=== PATIENT | male | born 1960 | race Caucasian/White ===

== ENCOUNTER → 2018-11-25 10:45 | Outpatient (CLI) | payer OTHER, SELFPAY ==
--- NOTE | 2018-11-25 11:30 | MRI_ITS ---
STUDY: MRI ABDOMEN WITH AND WITHOUT CONTRAST REASON FOR EXAM: Male, 58 years old. Abnormal labs, liver lesions, weight loss. TECHNIQUE: Standardized fat and water weighted pulse sequences were obtained in all 3 orthogonal planes post contrast administration. 10 ml of Gadavist contrast material was administered intravenously for the contrast portion of the examination. COMPARISON: None. FINDINGS: Osseous structures: Prominent thoracal lumbar scoliosis with multilevel thoracic degenerative disc disease. No acute osseous process. Body wall soft tissues: No acute process. Inferior chest: Clear lung bases, no cardiomegaly. Suspected underlying COPD. Normal distal esophagus. Spleen: Splenomegaly, 14.5 cm. Adrenal glands: Normal. Kidneys: Parapelvic cysts left, benign features. Otherwise normal kidneys, collecting systems, proximal ureters. Retroperitoneum: A few small lymph nodes are present. Aortic, aortocaval, the largest measuring about 10 mm, not pathologically enlarged and likely chronic. Vasculature: No acute process. Pancreas: Not atrophy. No ductal ectasia or focal lesion. Stomach: Normal. Small and large bowel: Evaluated portions exhibit no acute process. Hepatobiliary: Normal gallbladder. Nondilated hepatic duct and common bile duct. No significant ductal ectasia right liver. Hepatomegaly, craniocaudal right liver 22 cm. Prominent enlargement of the left liver with a greatest craniocaudal dimension of the left liver 18 cm. Mildly nodular contour the liver suspicious for the presence of cirrhosis. No evidence of any significant hepatic steatosis. On diffusion-weighted imaging, there is nearly diffuse increased T2 signal throughout the left liver. There is corresponding hypointensity of the left liver on T1-weighted imaging. T2 hyperintensity on diffusion the left liver may represent a combination of infiltrating malignancy, and acute inflammation or congestion of the left liver segment. This is associated with mild biliary ductal ectasia throughout the left liver segments. The biliary ductal ectasia may be associated with a heterogeneously hypoenhancing lesion within segment 3 of the left liver, extending to the hepatic hilum, measuring at least 6.5 cm anterior-posterior, 5.5 cm transverse, and 6.0 cm craniocaudal. This may be compressing the biliary tree near the hepatic hilum. This process is partially contiguous with additional heterogeneous hypoenhancement in the left liver segment 2. There are multiple discrete lesions of the liver in both right and the left liver, the majority of which are hyperenhancing on the early phase imaging, becoming relatively isointense to liver on the delayed phases of imaging. Each of these lesions is T2 hyperintense, and quite conspicuous on diffusion-weighted imaging. The largest in the left liver measures approximately 2.6 cm, and the caudate lobe 2.6 cm, in segment 4, 2.4 cm, in segment 5, 2.7 cm, in segment 7, 2.3 cm. Multiple additional smaller lesions are present. There is no apparent lymphadenopathy of the cece hepatis. MRI/MRI Abd WITH and W/O Contrast IMPRESSION: Suspicion of underlying hepatic cirrhosis, enlargement of both the right and the left liver, innumerable hepatic lesions as described in detail above. Consistent with malignancy. Difficult to discern if this pattern represents extensive metastatic disease or may represent primary underlying hepatomas. There is evidence of portal venous hypertension with enlargement of the spleen which measures a greatest craniocaudal dimension 14.5 cm. Liver biopsy is recommended. Electronically Signed: Kranthi Guerrier MD at 17:27 EST Tel , Service support ,
== END ==
PROVIDERS: Family Provider Preventive Medicine Occupational Medicine; PCP Preventive Medicine Occupational Medicine; Referring Provider Preventive Medicine Occupational Medicine; Visit Provider Preventive Medicine Occupational Medicine
DX: R93.2 Abnormal findings on diagnostic imaging of liver and biliary tract (principal)
CPT/HCPCS: 74183; A9585

== ENCOUNTER 2019-02-19 14:38 | Emergency (ER) | payer OTHER, SELFPAY ==
[2019-02-19] VITALS (15 sets, daily range): BP systolic 117–148; BP diastolic 84–99; PULSE 74–99; RESP 13–23; TEMP 36.3–37.2; O2SAT 96–100; BMI 22.8
--- NOTE | 2019-02-19 14:44 | EKG12_ITS ---
Test Reason : STROKE Blood Pressure : / mmHG Vent. Rate : 080 BPM Atrial Rate : 080 BPM P-R Int : 142 ms QRS Dur : 088 ms QT Int : 364 ms P-R-T Axes : 009 -28 055 degrees QTc Int : 419 ms Sinus rhythm with Premature atrial complexes Left[place] Otherwise normal ECG Confirmed by JOELLE SÁNCHEZ, LI ([id number]), development editor MONY MARKS ([id number]) on 02/22/2019 1:37:27 PM Referred By: BB Confirmed By:LI LAI MD
--- NOTE | 2019-02-19 14:44 | CT_ITS ---
STUDY: CT BRAIN WITHOUT CONTRAST REASON FOR EXAM: Male, 58 years old. Right-sided weakness. RADIATION DOSAGE (If Supplied By Facility): CTDIvol = ( 44.99 ) mGy, DLP = ( 829.85 ) mGycm TECHNIQUE: Transaxial CT imaging of the brain was performed without administration of intravenous contrast material. Individualized dose optimization techniques were used for this CT. COMPARISON: No relevant priors. FINDINGS: Normal soft tissue structures. Normal calvarium. Normal size ventricles and extra-axial spaces for the patient's age. Normal white matter tracts of the cerebral hemispheres. Normal basal ganglia and thalami. Normal brainstem. Diminished density of the left cerebellum, series 2 image . There is no intracranial hemorrhage. There are no findings of an acute ischemic infarction. There are atherosclerotic calcifications. Normal visualized paranasal sinuses. CT/Brain/Head without Contrast IMPRESSION: Left cerebellar volume loss with possible prior infarct. No hemorrhage. Results Dr. Ochoa. N.B. : The above information has been verbally conveyed by Duc Alonso MD to dr shawna MD, on 02/19/2019 15:03:36 (ET). Electronically Signed: Duc Alonso MD at 15:04 EDT , Service support ,
--- NOTE | 2019-02-19 14:46 | ED.VISSUMM ---
- ER Visit Summary Date of Service: 02/19/19 Chief Complaint: Acute stroke History of Present Illness: The patient is a 58 M who presents with a aphasia and right-sided hemiparesis that began approximately 50 minutes prior to arrival. states the patient was sitting on the front porch and wanted to come into the house. states that he was unable to talk at that time. Patient was unable to move his right side at that time. states patient has not been complaining of a headache, nausea, vomiting, or chest pain. states the patient has a history of hepatocellular carcinoma of the liver. Physical Examination: Vital signs are stable. Patient is afebrile. Patient is in no acute distress. Oral mucosa is pink and moist. Pupils are equal, round, and reactive to light bilaterally. Extraocular muscles are intact. Neck is supple. Trachea is midline. There is no JVD noted. Heart was regular rate and rhythm. Lungs are clear and equal bilaterally. There is adequate respiratory effort noted. Abdomen is soft. There is no apparent tenderness. There is good bowel sounds noted. Neurologic exam shows some mild right facial weakness. There is 0 out of 5 strength in the right upper and lower extremities. There is 5 out of 5 strength in the left upper and lower extremities. Test Results: CT scan of the brain does not show any acute intracranial abnormality. EKG showed sinus rhythm with PACs. There are no acute ST or T wave changes. CTA of the head and neck was obtained. There is a distal occlusion/near occlusion of the left sylvian segment of the M2 branch of the middle cerebral artery. CTA of the neck shows less than 50% stenosis of the internal carotids. CBC showed a mild anemia with a hemoglobin of 11.6 and hematocrit 36.6. Creatinine was normal at 0.62. INR was 1.3. Troponin was slightly elevated at 0.148. Emergency Department Course and Treatment: Case was discussed with Dr. Palma from neurology. He recommended administering TPA. This was ordered. Pharmacy was contacted. Patient received TPA. Patient's strength of his right upper and lower extremities improved. Patient's speech has improved. Patient's repeat NIH scale was 3. Case was discussed again with Dr. Palma after CTA results. He recommended transferring the patient to either [facility] or [facility] for further treatment of the distal M2 sylvian segment occlusion. Case was discussed with Dr. Tracy at the [facility]. He accepted transfer the patient and will transfer the patient to the neuro stepdown unit at the [facility]. Patient and family understood and were agreeable with the plan. All questions were answered. Disposition: Transfer to [facility] neuro stepdown unit Impression: Acute stroke with right hemiparesis This note was generated with Sossee dictation software. It may contain incorrect words, spelling, and punctuation that were not noted in review of the chart prior to signing ED Disposition - Plan for ED Patient: Disposition: [facility] - Main Diagnosis: Acute ischemic left MCA stroke Referrals: Flavio Cannon DO [Primary Care Provider] -
--- NOTE | 2019-02-19 14:51 | ED.RN ---
PAGED DR MACEDO
[2019-02-19 15:01] LABS: Bedside Glucose 99 mg/dL (70-110)
--- NOTE | 2019-02-19 15:02 | ED.DCSUM_ITS ---
- ER Visit Summary Date of Service: 02/19/19 Chief Complaint: Acute stroke History of Present Illness: The patient is a 58 M who presents with a aphasia and right-sided hemiparesis that began approximately 50 minutes prior to arrival. states the patient was sitting on the front porch and wanted to come into the house. states that he was unable to talk at that time. Patient was unable to move his right side at that time. states patient has not been complaining of a headache, nausea, vomiting, or chest pain. states the patient has a history of hepatocellular carcinoma of the liver. Physical Examination: Vital signs are stable. Patient is afebrile. Patient is in no acute distress. Oral mucosa is pink and moist. Pupils are equal, round, and reactive to light bilaterally. Extraocular muscles are intact. Neck is supple. Trachea is midline. There is no JVD noted. Heart was regular rate and rhythm. Lungs are clear and equal bilaterally. There is adequate respiratory effort noted. Abdomen is soft. There is no apparent tenderness. There is good bowel sounds noted. Neurologic exam shows some mild right facial weakness. There is 0 out of 5 strength in the right upper and lower extremities. There is 5 out of 5 strength in the left upper and lower extremities. Test Results: CT scan of the brain does not show any acute intracranial abnormality. EKG showed sinus rhythm with PACs. There are no acute ST or T wave changes. CTA of the head and neck was obtained. There is a distal occlusion/near occlusion of the left sylvian segment of the M2 branch of the middle cerebral artery. CTA of the neck shows less than 50% stenosis of the internal carotids. CBC showed a mild anemia with a hemoglobin of 11.6 and hematocrit 36.6. Creatinine was normal at 0.62. INR was 1.3. Troponin was slightly elevated at 0.148. Emergency Department Course and Treatment: Case was discussed with Dr. Palma from neurology. He recommended administering TPA. This was ordered. Pharmacy was contacted. Patient received TPA. Patient's strength of his right upper and lower extremities improved. Patient's speech has improved. Patient's repeat NIH scale was 3. Case was discussed again with Dr. Palma after CTA results. He recommended transferring the patient to either [facility] or [facility] for further treatment of the distal M2 sylvian segment occlusion. Case was discussed with Dr. Tracy at the [facility]. He accepted transfer the patient and will transfer the patient to the neuro stepdown unit at the [facility]. Patient and family understood and were agreeable with the plan. All questions were answered. Disposition: Transfer to [facility] neuro stepdown unit Impression: Acute stroke with right hemiparesis This note was generated with [employer] dictation software. It may contain incorrect words, spelling, and punctuation that were not noted in review of the chart prior to signing ED Disposition - Plan for ED Patient: Disposition: [facility] - Main Diagnosis: Acute ischemic left MCA stroke Referrals: Flavio Cannon DO [Primary Care Provider] -
--- NOTE | 2019-02-19 15:05 | CT_ITS ---
We are attempting to reach Minesh Ochoa to discuss findings. An addendum with communication details will be sent when the communication is complete. STUDY: CTA NECK WITH CONTRAST REASON FOR EXAM: Male, 58 years old. Possible stroke RADIATION DOSAGE (If Supplied By Facility): CTDIvol = ( 32.45 ) mGy, DLP = ( 900.67 ) mGycm TECHNIQUE: CT angiography with multi-detector data acquisition was performed from the aortic arch to the skull base following intravenous administration of Isovue 370 100 IV. MIP images were reconstructed from the axial data set. Post-processing of the angiographic images was performed, with multiplanar reformation and 3D reconstruction. Individualized dose optimization techniques were used for this CT. COMPARISON: None. FINDINGS: AORTIC ARCH: Normal visualized aortic arch. Normal origins of the brachiocephalic, left common carotid, and left subclavian arteries. RIGHT CAROTID ARTERIES: Normal right common carotid artery (CCA). Normal right common carotid bulb. There is mild atheromatous narrowing of the proximal right internal carotid artery. Normal visualized cervical portion of the right internal carotid artery. Normal origin of the right external carotid artery (ECA). LEFT CAROTID ARTERIES: Normal left common carotid artery (CCA). Normal left common carotid bulb. There is mild atheromatous narrowing of the proximal left internal carotid artery.. Normal visualized cervical portion of the left internal carotid artery. Normal origin of the left external carotid artery (ECA). VERTEBRAL ARTERIES: Normal bilateral vertebral arteries. CT/CTA Neck W/WO Contrast IMPRESSION: Less than 50% diameter stenoses within the internal carotid arteries Electronically Signed: Flavio Rios, at 16:31 EDT Tel , Service support ,
--- NOTE | 2019-02-19 15:05 | CT_ITS ---
STUDY: CTA OF THE BRAIN REASON FOR EXAM: Male, 58 years old. Right-sided weakness RADIATION DOSAGE (If Supplied By Facility): CTDIvol = ( 32.45 ) mGy, DLP = ( 900.67 ) mGycm TECHNIQUE: CT angiography was performed with a multi-detector CT scanner. Data acquisition was obtained from the skull base through the vertex following intravenous administration of Isovue 370 100 IV. MIP images were reconstructed from the axial data set. Post-processing of the angiographic images was performed, with multiplanar reformation and 3D reconstruction. Individualized dose optimization techniques were used for this CT. COMPARISON: None. FINDINGS: Normal bilateral petrous carotid arteries. Normal right cavernous carotid artery with a normal supraclinoid bifurcation. Normal left cavernous carotid artery with a normal supraclinoid bifurcation. Normal right A1 segments of the anterior cerebral artery. Normal left A1 segments of the anterior cerebral artery. Normal intact anterior communicating artery (ACOM). Normal bilateral A2 segments of the anterior cerebral arteries. Normal right M1 and M2 segments of the middle cerebral arteries, with a normal M1 bifurcation. Normal left M1 segment with occlusion or near occlusion of the M2 segment sylvian segment of the left middle cerebral artery. There is overall decreased more peripheral flow within the left middle cerebral artery compared to the right with significant decreased flow through the cortical M3 segment as well. There is hypoplasia of the posterior communicating arteries. Normal bilateral vertebral arteries. Normal basilar artery with a normal basilar bifurcation. The visualized bilateral superior cerebellar (SCA) arteries are normal. Normal bilateral P1, P2 and visualized P3 segments of the posterior cerebral arteries. There is no demonstrated aneurysm of the [place]. There is no demonstrated abnormality of the visualized brain. CT/CTA Head W/WO Contrast IMPRESSION: occlusion or near occlusion of the M2 sylvian segment of the left middle cerebral artery. There is overall decreased more peripheral flow within the left middle cerebral artery compared to the right with significant decreased flow through the cortical M3 segment as well The results were called to and discussed Physician: Minesh Ochoa immediately after my review at 4:20 PM 02/19/2019. N.B. : The above information has been verbally conveyed by Flavio Rios to Minesh Ochoa on 02/19/2019 16:26:57 (ET). Electronically Signed: Flavio Rios, at 16:29 EDT Tel , Service support ,
[2019-02-19 15:11] LABS: Absolute Lymphocyte Count 0.38 X10^3/ul (0.83-4.51); Absolute Neutrophil Count 5.8 X10^3/uL (2.0-7.7); Basophil# 0.74 X10^3/uL; Basophil% 10.1 % (0-1); Hematocrit 36.6 % (40-54); Hemoglobin 11.6 g/dl (13.0-16.5); Lymphocyte # 0.38 X10^3/ul (4.0); Lymphocyte % 5.2 % (19-41); Mean Corp Hgb Conc 31.7 g/gl (32-36); Mean Corpuscular Hgb 30.4 pg (27.0-32.0); Mean Corpuscular Volume 95.8 fL (80-94); Monocyte# 0.35 X10^3/uL; Monocyte% 4.8 % (0-10); Neutrophil # 5.82 X10^3/uL (2.7-7.7); Neutrophil % 79.4 % (47-70); Platelet Count 190 K/mm3 (150-450); RBC Distribution Width CV 17.4 % (11.6-14.6); RBC Distribution Width SD 60.3 fl (35.1-43.9); Red Blood Count 3.82 M/mm3 (4.6-6.2); White Blood Count 7.3 K/mm3 (4.4-11.0)
[2019-02-19 15:12] LABS: Differential Indicated SCAN CRITERIA MET; POSITIVE COUNT NO; POSITIVE DIFFERENTIAL YES; POSITIVE MORPHOLOGY NO
[2019-02-19 15:15] LABS: International Normalized Ratio 1.3; Prothrombin Time (Protime)PT. 15.5 SECONDS (11.7-14.9)
[2019-02-19 15:16] LABS: Partial Thromboplast Time 36.9 Seconds (24.1-36.2)
[2019-02-19 15:21] LABS: Anion Gap 12 (5-15); BUN 8 mg/dL (7-18); Calcium,Total 8.5 mg/dL (8.5-10.1); Chloride 98 mmol/L (98-107); Creatinine, Serum 0.62 mg/dL (0.70-1.30); EST Glomerular Filtration Rate 142 mL/min (>60); Est Glom Filt Rate - Afr Amer 172 mL/min (>60); Estimated Creatinine Clearance 154.78 ml/min; Glucose 99 mg/dL (74-106); Sodium Level 134 mmol/L (136-145)
[2019-02-19 15:24] LABS: Differential Comment SCANNED
--- NOTE | 2019-02-19 15:29 | CM.ED ---
Social Work Note Stroke alert called. [facility] updates this mortgage or loan underwriter and security that family members were upset and had wanted pt to go to [place]. Face to face with pt and pt's . Pt and deny needs at this time. Reportedly pt's daughter was requesting [facility] and was upset in the moment that pt was transported elsewhere. Pt and deny any concerns with ED or staff and deny needs at this time. Support provided, and made aware that this mortgage or loan underwriter is available if needed. Ana Fernando, ADVERTISING INSERTER, HYDROCRANE OPERATOR
--- NOTE | 2019-02-19 15:40 | RAD_ITS ---
STUDY: X-RAY CHEST REASON FOR EXAM: Male, 58 years old. CVA, TIA TECHNIQUE: Portable chest COMPARISON: None. FINDINGS: There is faint contrast overlying the right chest and axilla likely residual contrast prior CTA chest exam The lungs are clear and expanded. There is no demonstrated pleural abnormality. Normal size heart. Normal mediastinum and krystal. Normal visualized pulmonary arteries. Normal visualized aortic arch and descending thoracic aorta. Normal visualized thoracic spine. Normal visualized ribs, clavicles, and shoulders. There is no demonstrated abnormality of the visualized soft tissue structures of the upper abdomen. RAD/Chest 1 View IMPRESSION: No acute process Electronically Signed: Flavio Rios, at 17:35 EDT Tel , Service support ,
--- NOTE | 2019-02-19 20:58 | ED.RN ---
PT TRANSPORTED WITHOUT ISSUE. PT STABLE DURING TRANSPORT. BED SIDE REPORT WAS GIVEN TO MANNY ENGLAND AT 1933. Citlalli MORALES RN [id number]
== END 2019-02-19 18:04 | disposition short-term general hospital (02) ==
PROVIDERS: Emergency Provider Emergency Medicine; Family Provider Preventive Medicine Occupational Medicine; PCP Preventive Medicine Occupational Medicine
DX: I63.512 Cerebral infarction due to unspecified occlusion or stenosis of left middle cerebral artery (principal); R47.01 Aphasia; G81.91 Hemiplegia, unspecified affecting right dominant side; R29.703 NIHSS score 3; Z85.05 Personal history of malignant neoplasm of liver; Z72.0 Tobacco use
CPT/HCPCS: 70450; 70496; 70498; 71045; 80048; 82962; 84484; 85025; 85610; 85730; 93005; 96365; 99285; J2997; J7030; J7050; Q9967; A4216; J3490